=== PATIENT | male | born 1940 | race Caucasian/White ===

== ENCOUNTER 2019-08-05 15:33 | Emergency (ER) | payer SELFPAY ==
[~2019-08-05] VITALS: Ht 177.8 cm; Wt 88.0 kg
[2019-08-05 17:15] LABS: BASOPHILS % (AUTO) 0.6 % (0.0-2.0); EOSINOPHILS % (AUTO) 4.6 % (0.0-6.0); HEMATOCRIT 44 % (39-51); HEMOGLOBIN 14.4 g/dL (13.5-17.5); LYMPHOCYTES # (AUTO) 2.6 /CMM (0.8-4.8); LYMPHOCYTES % (AUTO) 34.7 % (20.0-44.0); MEAN CORPUSCULAR HGB CONC 33 g/dl (31.0-36.0); MEAN CORPUSCULAR VOLUME 92 fL (80-96); MONOCYTES # (AUTO) 0.5 /CMM (0.1-1.30); MONOCYTES % (AUTO) 6.4 % (2.0-12.0); NEUTROPHILS % (AUTO) 53.7 % (43.0-81.0); PLATELET COUNT (AUTO) 258 /CMM (150-450); RED BLOOD CELL COUNT(AUTO) 4.78 MIL/uL (4.5-6.0); WHITE BLOOD COUNT (AUTO) 7.4 K/uL (4.3-11.0)
[2019-08-05 17:35] LABS: BILIRUBIN,TOTAL 0.4 mg/dL (0.2-1.0); CALCIUM, SERUM 8.6 mg/dL (8.5-10.1); CREATININE 1.3 mg/dL (0.6-1.3); POTASSIUM 4.3 mmol/L (3.5-5.1); TOTAL PROTEIN, SERUM 7.2 g/dL (6.4-8.2)
[2019-08-05 18:30] VITALS: BP 141/73
== END 2019-08-05 19:07 | disposition home or self-care (01) ==
LOC: ER 15:40
DX: L30.8 Other specified dermatitis (principal); R22.43 Localized swelling, mass and lump, lower limb, bilateral; Z60.2 Problems related to living alone
CPT/HCPCS: 36415; 80053-TC; 85025-TC; 85730-TC; 93970-TC